=== PATIENT | female | born 1965 ===

== ENCOUNTER → 2021-03-11 | Outpatient (CLI) | payer OTHER | END | disposition home or self-care (01) | LOC: CFH 10:01 | PROVIDERS: ATTEND Family Medicine | DX: Z12.31 Encounter for screening mammogram for malignant neoplasm of breast (principal); Z12.39 Encounter for other screening for malignant neoplasm of breast | CPT/HCPCS: 76641; 77063; 77067 ==

== ENCOUNTER 2021-03-25 12:05 | Outpatient (CLI) | payer OTHER ==
[~2021-03-25 12:05] MED LIST: CHLORHEXIDINE 15 ML UDC ONE
== END 2021-03-25 23:59 | disposition home or self-care (01) ==
LOC: CFH 12:05
PROVIDERS: ATTEND Family Medicine
DX: N63.11 Unspecified lump in the right breast, upper outer quadrant (principal)
CPT/HCPCS: 76642; 77065